=== PATIENT | female | born 1975 | race Caucasian/White ===

== ENCOUNTER 2019-04-21 13:05 | Inpatient (IN) | payer OTHER ==
[~2019-04-21] VITALS: Ht 157.5 cm; Wt 72.5 kg
--- NOTE | ~2019-04-21 | CON ---
[address] [address] CONSULTATION Name: SILVER MACHADO Room: [address] ADM IN M.R.#: [id number] Admission: 04/21/19 Attend Phys: Kayleigh John Discharge: Date of : 77 Report #: [id number] THIS REPORT FOR: //name// CC: [facility] physician/PCP Wen Solano DICTATED BY: Holly Lakhani [facility] DATE OF SERVICE: 04/22/2019 PRIMARY CARE PHYSICIAN: Wen Camacho MD Please note at the time of this dictation, the patient was seen and physically examined by myself. REASON FOR CONSULTATION: Nausea, vomiting and abdominal pain. HISTORY OF PRESENT ILLNESS: This is a 44-year-old female who presented to the Emergency Room with having abrupt onset of nausea, vomiting that started the day before admission. She started having some abdominal pain and diarrhea and breaking out in a cold sweat. She states she had been vomiting and having diarrhea numerous times the hour prior to her coming to the Emergency Room. She denies any bright red blood or melanotic stool or any bright red blood or coffee ground emesis with her episodes. The patient states she has had periodic episodes of this off and on, but nothing severe. She has had a history of colonoscopies done at [facility]. She has had upper and lower scopes done. Her upper scope last year she states was normal. Lower scope, they said that they removed polyps, but was normal. We will obtain those records for our review. The patient states she has a longstanding history of constipation that she may go up to a week. This admission had only been 4-5 days. She does not take anything regularly for her bowels and then she will have diarrhea and the cycle will repeat itself. ALLERGIES: REGLAN. MEDICATIONS FROM HOME: Atenolol. PAST MEDICAL HISTORY: Hypertension, history of abdominal hernias. PAST SURGICAL HISTORY: Negative. FAMILY HISTORY: History of breast and ovarian, also family history of Crohn's disease in mother, brother and maternal aunt. SOCIAL HISTORY: Alcohol use on special occasions. [place] [address] CONSULTATION Name: SILVER MACHADO Room: [address] IN [facility]#: [id number] Admission: 04/21/19 Attend Phys: Kayleigh John Discharge: Date of : 77 Report #: [id number] illegal drug use. REVIEW OF SYSTEMS: Twelve-point review of systems is essentially negative except what is mentioned in the HPI. PHYSICAL EXAMINATION: VITAL SIGNS: Temperature 36.6, pulse 100, respirations 16, blood pressure 136/88. HEART: Regular rate and rhythm. LUNGS: Clear. ABDOMEN: Soft, positive bowel sounds in all 4 quadrants with some mild tenderness noted in the left lower quadrant. LABORATORY DATA: Hemoglobin is 17.1, white count is 13.7, platelets 264. GFR is 91. CRP was 16.3. IMAGING: CT of the abdomen and pelvis showed left-sided colitis, otherwise negative. IMPRESSION: 1. Abdominal pain. 2. Nausea and vomiting, resolved. 3. History of chronic constipation. 4. Leukocytosis. 5. Family history of Crohn's in mother, brother, maternal aunt. 6. Family history of ovarian and breast cancer. PLAN: 1. Colonoscopy tomorrow with ____. We will give her extra prep given that she has a history of constipation. 2. Request records from [facility] [place], previous EGD colon. 3. Further recommendations to be made after the procedure has been performed. 4. The patient will need a regular bowel regimen prior to going home. Thank you for allowing us to participate in this patient's care. Please do not hesitate to call with any questions in regard to this consult. By: [id number] Sorensen MD /nt
[2019-04-21 13:21] VITALS: BP 155/96
[2019-04-21] MEDS ORDERED: ATENOLOL 25MG T25 M1 PO (13:25)
[2019-04-21 13:45] LABS: HEMATOCRIT 49.6 % (37.0-47.0); HEMOGLOBIN 17.1 gm/dL (12.0-15.0); MCH 30.3 pg (26.0-34.0); MCHC 34.6 g/dL (28.0-37.0); MCV 87.8 fL (80.0-100.0); MPV 8.9 fl. (7.2-11.1); NUCLEATED RBCS 0 /100WBC; PLATELET COUNT* 264 thou/uL (150-400); RBC 5.65 mil/uL (4.20-5.00); RDW-CV 13.5 % (10.5-14.5); WBC 13.7 thou/uL (4.0-11.0)
[2019-04-21 13:53] LABS: ANION GAP 17 mmol/L (7-16); BUN 16 mg/dL (7-18); CALCIUM 10.3 mg/dL (8.5-10.1); CHLORIDE 99 mmol/L (98-107); CO2 22 mmol/L (21-32); CREATININE 0.7 mg/dL (0.6-1.3); GLUCOSE 141 mg/dL (70-99); POTASSIUM 3.6 mmol/L (3.5-5.1); SODIUM 138 mmol/L (136-145)
[2019-04-21 14:01] LABS: ABSOLUTE LYMPHOCYTES 1.9 thou/uL (0.8-5.3); ABSOLUTE NEUTROPHILS 11.8 thou/uL (1.6-8.1); ATYPICAL LYMPHS 5 %
[2019-04-21 14:02] LABS: PLATELET ESTIMATE ADEQUATE
[2019-04-21 14:03] LABS: ALBUMIN 4.4 g/dL (3.4-5.0); ALKALINE PHOSPHATASE 123 U/L (46-116); LIPASE 69 U/L (73-393); SGOT 17 U/L (15-37); SGPT 29 U/L (30-65); TOTAL BILIRUBIN 0.4 mg/dL (<0.1-1.0); TOTAL PROTEIN 9.3 g/dL (6.4-8.2); TROPONIN-I LEVEL <0.06 ng/mL (<0.06)
[2019-04-21 16:18] LABS: URINE BILIRUBIN NEGATIVE (Negative); URINE BLOOD TRACE (Negative); URINE CLARITY CLEAR; URINE COLOR YELLOW; URINE GLUCOSE-RANDOM NEGATIVE (Negative); URINE KETONES 2+ (Negative); URINE LEUKOCYTES-REFLEX NEGATIVE (Negative); URINE NITRITE-REFLEX NEGATIVE (Negative); URINE PROTEIN NEGATIVE (Negative); URINE SPECIFIC GRAVITY <= 1.005 (1.005-1.030); URINE UROBILINOGEN 0.2 E.U./dl (0.2-1.0)
[2019-04-21 19:37] VITALS: BP 172/92
[2019-04-21 21:15] VITALS: BP 176/104
[2019-04-21 23:14] VITALS: BP 149/79
[2019-04-22 08:12] VITALS: BP 136/88
--- NOTE | 2019-04-22 10:26 | EKG ---
[place] [address] ELECTROCARDIOGRAM REPORT Name: SILVER MACHADO Room: [address] ADM IN .R.#: [id number] Admission: 04/21/19 Attend Phys: Kayleigh John Discharge: Date of : 77 Report #: [id number] THIS REPORT FOR: //name// [facility] ED Test Date: 2019-04-21 Test Time: 13:48:49 Pat Name: SILVER MACHADO Department: Room: 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
[2019-04-22 16:29] VITALS: BP 170/94
[2019-04-22 19:45] VITALS: BP 133/80
[2019-04-23] VITALS (7 sets, daily range): BP systolic 113–177; BP diastolic 64–80
[2019-04-23] MEDS ORDERED: ZOFRAN ODT4 MG PO (10:16)
[2019-04-23] MEDS ORDERED: AUGMENTIN 875-1 EACH PO (10:16)
[2019-04-23] MEDS ORDERED: MIRALAX17 GM PO (10:17)
--- NOTE | 2019-04-23 17:24 | EKG ---
[place] [address] ELECTROCARDIOGRAM REPORT Name: SUSANNAH MACHADOINA Room: [address] ADM IN M.R.#: [id number] Admission: 04/21/19 Attend Phys: Kayleigh John Discharge: Date of : 77 Report #: [id number] THIS REPORT FOR: //name// [facility] Test Date: 2019-04-23 Test Time: 10:05:40 Pat Name: SILVER MACHADO Department: Room: [address] Gender: F Oil Exploration Engineer: : 1975 Requested By: Angy Grady Order Number: [id number] Johan MD: Himanshu Gan Measurements Intervals [place] Rate: 52 P: 49 AL: 132 QRS: 75 QRSD: 99 T: 47 QT: 471 QTc: 438 Interpretive Statements Sinus rhythm Low voltage, precordial leads Compared to ECG 04/21/2019 13:48:49 Low QRS voltage now present Electronically Signed On 04-23-2019 17:24:38 CDT by Himanshu Gan [email or web address] <ELECTRONICALLY SIGNED> By: Himanshu Gan MD, [facility] 04/23/19 1724 1005 1005 Himanshu Gan MD, FAC /EPI
--- NOTE | 2019-04-25 13:07 | PATH ---
[facility] [address] [place] [address] PATHOLOGY RPT PROCEDURE Name: SHANNAN MACHADO Room: [address] IN M.R.#: [id number] Admission: 04/21/19 Date of : 77 Discharge: 04/23/19 Report #: [id number] Path Case #: [id number] [facility] Accession Number: [id number] . 01 Material submitted: . PART A: cecum - CECAL POLYP PART B: colon - TRANSVERSE COLON POLYP X2. Modifiers: transverse, X2 PART C: colon - BIOPSY OF SIGMOID COLON PART D: rectum - RECTAL POLYP . 01 Clinical history: . None provided . 02 Diagnosis: A. Cecal polyp: - Benign colonic mucosa most consistent with hyperplastic polyp, negative for high-grade dysplasia. . B. Transverse colon polyp x2: - Two tubular adenomas, negative for high-grade dysplasia. . C. Biopsy of sigmoid colon: - Mild active colitis with mucosal atrophy typical of ischemic colitis, negative for granulomas, viral inclusions and dysplasia. See comment. . D. Rectal polyp: - Tubular adenoma, negative for high-grade dysplasia. (AMELIA:donell; 04/25/2019) QMS 04/25/2019 1106 Local . 02 Comment: Histologic sections of the biopsy of sigmoid colon (C) show benign colonic mucosa including several fragments which are remarkable essentially only for fresh hemorrhage and several others in which there is active inflammation in association with prominent mucosal atrophy and preservation of the deepest aspects of crypts, where the lamina propria is condensed and possibly fibrotic. No significant basal lymphoplasmacytosis or crypt distortion is present to elevate a concern for inflammatory bowel disease. (AMELIA:donell; 04/25/2019) . 02 Electronically signed: . Juan Sierra MD, Pathologist NPI- [id number] . 01 Gross description: . A. The specimen is received in formalin, labeled "Shannan Machado, cecal polyp". Received is a segment of pale navarro soft tissue measuring 0.8 [place] [address] PATHOLOGY RPT PROCEDURE Name: SHANNAN MACHDAO Room: [address] IN .R.#: [id number] Admission: 04/21/19 Date of : 77 Discharge: 04/23/19 Report #: [id number] Path Case #: [id number] maximum dimensions. The specimen is submitted entirely in cassette A1. . B. The specimen is received in formalin, labeled "Shannan White, transverse colon polyp x2".". Received are two segments of pale navarro soft tissue ranging in size from 0.5 to 0.6 cm in maximum dimensions. The specimen is submitted entirely in cassette B1. . C. The specimen is received in formalin, labeled "Shannan White, biopsy of sigmoid colon". Received are three segments of pale navarro soft tissue ranging in size from 0.3 to 0.4 cm in maximum dimensions. The specimen is submitted entirely in cassette C1. . D. The specimen is received in formalin, labeled "Shannan White, rectal polyp". Received is a segment of pale navarro soft tissue measuring 0.8 x 0.5 x 0.4 cm in greatest dimensions. The surgical margin is inked. The specimen is bisected perpendicular to the margin and entirely submitted in cassette D1. (CAA; 04/24/2019) QA/[facility] 04/24/2019 1407 Local . 02 Pathologist provided ICD-10: K63.5, D12.3, K52.9, D12.8 . 02 CPT . 661973, 689518, 752495, 756592 Specimen Comment: A courtesy copy of this report has been sent to Specimen Comment: [phone]. Specimen Comment: Report sent to / DR KAYE Performed at: [address], [place], [place] [id number] MD Ángel Cox MD Phone: [phone] Performed at: [address] [address] [place] [id number] MD Juan Sierra MD Phone: [phone]
== END 2019-04-23 18:56 | disposition home or self-care (01) | DRG 392 ==
LOC: M.ERS 13:05 → M.ORTHSURG 15:23 → M.TBA-ER 15:23 → M.ORTHSURG 21:14
PROVIDERS: Family Medicine; ADMIT Internal Medicine
PROC: 0DBN8ZX Excision of Sigmoid Colon, Via Natural or Artificial Opening Endoscopic, Diagnostic (ICD-10-PCS; principal; 2019-04-23)
PROC: 0DBL8ZZ Excision of Transverse Colon, Via Natural or Artificial Opening Endoscopic (ICD-10-PCS; principal; 2019-04-23)
PROC: 0DBP8ZZ Excision of Rectum, Via Natural or Artificial Opening Endoscopic (ICD-10-PCS; principal; 2019-04-23)
PROC: 0DBH8ZZ Excision of Cecum, Via Natural or Artificial Opening Endoscopic (ICD-10-PCS; principal; 2019-04-23)
DX: K52.9 Noninfective gastroenteritis and colitis, unspecified (principal); D35.00 Benign neoplasm of unspecified adrenal gland; I10 Essential (primary) hypertension; D12.0 Benign neoplasm of cecum; K62.1 Rectal polyp; D12.3 Benign neoplasm of transverse colon; E86.0 Dehydration; S80.01XA Contusion of right knee, initial encounter; X58.XXXA Exposure to other specified factors, initial encounter; K64.4 Residual hemorrhoidal skin tags; K59.09 Other constipation; I73.9 Peripheral vascular disease, unspecified; Z79.899 Other long term (current) drug therapy; Z88.1 Allergy status to other antibiotic agents; Z88.8 Allergy status to other drugs, medicaments and biological substances; Z80.3 Family history of malignant neoplasm of breast; Z80.41 Family history of malignant neoplasm of ovary; Z90.710 Acquired absence of both cervix and uterus; Z90.49 Acquired absence of other specified parts of digestive tract; Y93.89 Activity, other specified; Y92.89 Other specified places as the place of occurrence of the external cause; Y99.8 Other external cause status